=== PATIENT | female | born 1960 | race Hispanic/Latino ===

== ENCOUNTER 2020-06-13 19:42 | Emergency (ER) | payer OTHER, SELFPAY ==
--- NOTE | 2020-06-13 20:51 | RAD ---
EXAM: RIGHT KNEE FOUR VIEWS: 06/13/20 HISTORY: Pain. FINDINGS: There is a suprapatellar effusion. No fracture, cortical irregularity or periosteal reaction. There i s mild to moderate degenerative change involving the lateral compartment. IMPRESSION: Suprapatellar effusion without radiographic evidence of fracture. If there is concern for internal de rangement, consider MRI. POS: PPP
[2020-06-13] MEDS ORDERED: HYDROcodone/Acetaminophen 10/325 mg Tablet ONE (21:12)
== END 2020-06-13 21:19 | disposition home or self-care (01) ==
LOC: ERS 19:42
DX: M25.561 Pain in right knee (principal); J45.909 Unspecified asthma, uncomplicated; F17.210 Nicotine dependence, cigarettes, uncomplicated

== ENCOUNTER 2020-09-17 17:57 | Observation (INO) | payer SELFPAY ==
--- NOTE | 2020-09-17 18:26 | RAD ---
Exam: Chest one view HISTORY:Chest pain. Comparison: 01/19/2017 FINDINGS: Cardiac silhouette: Normal Aorta: Unremarkable Pulmonary vessels: Normal Costophrenic angles: Clear LUNGS: No masses or consolidation. Pneumothorax: None Osseous abnormalities: None IMPRESSION: No acute cardiopulmonary process.
[2020-09-17 18:41] LABS: #Basophils 0.1 thou/uL (0.0-0.2); #Eosinphils 0.2 thou/uL (0.0-0.7); #Lymphocytes 2.2 thou/uL (1.20-3.40); #Monocytes 0.6 thou/uL (0.11-0.59); #Neutrophils 5.6 thou/uL (1.40-6.50); %Basophils 0.9 % (0.0-1.0); %Eosinophils 2.8 % (0.0-10.0); %Lymphocytes 25.2 % (21.0-51.0); %Monocytes 6.6 % (0.0-10.0); %Neutrophils 64.4 % (42.0-75.0); Hemoglobin 13.5 g/dL (12.0-16.0); Mean Corpuscular HGB CONC 31.5 g/dL (32.0-36.0); Mean Corpuscular Hemoglobin 27.8 pg (27.0-31.0); Mean Corpuscular Volume 88.3 fL (78.0-98.0); Mean Platelet Volume 8.6 fL (7.4-10.4); Platelet Count 299 thou/uL (130-400); RBC Distribution Width 11.9 % (11.5-14.5); Red Blood Cell (RBC) Count 4.84 mill/uL (4.20-5.40); White Blood Cell (WBC) Count 8.7 thou/uL (4.8-10.8)
[2020-09-17 19:01] LABS: ALT (SGPT) 24 U/L (8-55); AST (SGOT) 28 U/L (5-34); Albumin 4.4 g/dL (3.5-5.0); Alkaline Phosphatase 116 U/L (40-110); Anion Gap 16 mmol/L (10-20); BUN (Urea Nitrogen) 16 mg/dL (9.8-20.1); Bilirubin, Total 0.3 mg/dL (0.2-1.2); Calc. Creatinine Clearance 0 mL/min (70-130); Calcium 9.4 mg/dL (7.8-10.44); Carbon Dioxide 26 mmol/L (22-29); Chloride 103 mmol/L (98-107); Globulin 3.2 g/dL (2.4-3.5); Glucose 98 mg/dL (70-105); Lipase 23 U/L (8-78); Potassium 4.3 mmol/L (3.5-5.1); Protein, Total 7.6 g/dL (6.0-8.3); Sodium 141 mmol/L (136-145)
[2020-09-17 20:58] LABS: Bacteria/HPF 2+ HPF (None Seen); Bilirubin Negative (Negative); Blood, Urine Trace (Negative); Clarity Clear (Clear); Glucose, Urine (Dipstick) Normal (Negative); Ketone, Urine Negative (Negative); Leukocyte 25 Leu/uL (Negative); Nitrite Negative (Negative); Protein, Urine (Dipstick) 20 mg/dL (Neg-Trace); RBC/HPF 0-3 HPF (0-3); Specific Gravity, Urine 1.029 (1.002-1.036); Squamous Epithelial 0-3 HPF (0-3); Urobilinogen Normal mg/dL (Less than 2); pH, Urine 5.5 (5.0-9.0)
[2020-09-17] MEDS ORDERED: Nitroglycerin 2% Ointment 1 INCH/1 GM Packet ONE (21:11)
[2020-09-17] MEDS ORDERED: Aspirin Chewable 81 MG TAB ONE (21:11)
[2020-09-17] MEDS ORDERED: Ondansetron PF 4 MG/2 ML Vial ONE (21:22)
[2020-09-17] MEDS ORDERED: Morphine 4 MG/ML VIAL ONE (21:22)
--- NOTE | 2020-09-17 22:09 | ULT ---
EXAM: US Gallbladder RUQ CLINICAL HISTORY: Abdominal pain. Right upper quadrant pain.. COMPARISON: 10/31/2016 FINDINGS: Pancreas: The head and proximal body of the pancreas have a normal echotexture. The remainder the pa ncreas is obscured by bowel gas. Liver:Heterogeneous echotexture liver may be due to hepatic steatosis or hepatocellular disease. Limi rosemary evaluation for hepatic masses and intrahepatic biliary dilatation. Right hepatic lobe: 18.3 cm Gallbladder: Surgically absent Gonzales's sign:Not applicable Portal Vein: Limited evaluation of the main portal vein. Bile ducts: Suboptimal evaluation the common bile duct Right kidney: No hydronephrosis. Right kidney measures 8.6 x 3.7 x 4.2 cm in length. IMPRESSION: 1. Surgically absent gallbladder 2. Heterogeneous echotexture liver which may be due to hepatic steatosis or hepatocellular disease. M ild hepatomegaly. 3. Suboptimal evaluation the common bile duct.
[2020-09-17 23:53] LABS: Troponin I Less than 0.010 ng/mL (< 0.028)
--- NOTE | 2020-09-18 01:48 | PDOC.HHP ---
Hospitalist HPI - History of Present Illness Chest pain History of Present Illness: This is a 59-year-old female patient with a history of asthma, stroke hypertension who presents with chest pain ongoing for a day. She notes having woken up in the morning with pain into the chest which was persisted. Pain is central nonradiating no significant relieving factors. She had associated shortness of breath however denies any nausea vomiting. At presentation BP was 184/71, temperature 98.2, respiratory 14 and pulse 78. BMP CBC UA and D-dimer were essentially within normal limits. Chest x-ray showed no acute cardiopulmonary process. Ultrasound of abdomen showed surgically absent gallbladder, heterogeneous echotexture concerning for possible hepatic steatosis or hepatocellular carcinoma. She was given morphine Zofran Nitro-Bid and aspirin in the ED. Hospitalist team consulted for admission for Exparel. Hospitalist History - Past Medical History Other Medical History: Hypertension, stroke, asthma - Past Surgical History Other Surgical History: Hysterectomy, - Family History Family History: reports: no pertinent history - Social History Smoking Status: Current every day smoker Alcohol: reports: None Living Situation: With Family - Exam General Appearance: awake alert General - other findings: In no acute distress. Eye: PERRL, anicteric sclera ENT: normocephalic atraumatic, no oropharyngeal lesions Neck: supple, symmetric, no JVD, no thyromegaly Heart: RRR, no murmur, no gallops, no rubs Respiratory: CTAB, no wheezes, no rales, no ronchi Gastrointestinal: soft, non-tender, non-distended, normal bowel sounds Extremities: no cyanosis, no clubbing, no edema Skin: no lesions Neurological: cranial nerve grossly intact, no weakness, no focal deficits Musculoskeletal: normal tone, normal strength Psychiatric: normal affect, normal behavior, A&O x 3 Hospitalist Results - Labs Result Diagrams: 09/18/20 02:08 09/17/20 18:27 Lab results: WBC 8.7 thou/uL (4.8-10.8) 09/17/20 18:27 Hgb 13.5 g/dL (12.0-16.0) 09/17/20 18:27 Hct 42.7 % (36.0-47.0) 09/17/20 18: MCV 88.3 fL (78.0-98.0) 09/17/20 18:27 Plt Count 299 thou/uL (130-400) 09/17/20 18:27 Neutrophils % 64.4 % (42.0-75.0) 09/17/20 18:27 Sodium 141 mmol/L (136-145) 09/17/20 18:27 Potassium 4.3 mmol/L (3.5-5.1) 09/17/20 18:27 Chloride 103 mmol/L (98-107) 09/17/20 18:27 Carbon Dioxide 26 mmol/L (22-29) 09/17/20 18:27 BUN 16 mg/dL (9.8-20.1) 09/17/20 18:27 Creatinine 0.78 mg/dL (0.6-1.1) 09/17/20 18:27 Glucose 98 mg/dL (70-105) 09/17/20 18:27 Calcium 9.4 mg/dL (7.8-10.44) 09/17/20 18:27 Total Bilirubin 0.3 mg/dL (0.2-1.2) 09/17/20 18:27 AST 28 U/L (5-34) 09/17/20 18:27 ALT 24 U/L (8-55) 09/17/20 18:27 Alkaline Phosphatase 116 U/L (40-110) H 09/17/20 18:27 Creatine Kinase 97 U/L (29-168) 09/17/20 18:27 Troponin I Less than 0.010 ng/mL (< 0.028) 09/17/20 23:14 Serum Total Protein 7.6 g/dL (6.0-8.3) 09/17/20 18:27 Albumin 4.4 g/dL (3.5-5.0) 09/17/20 18:27 Lipase 23 U/L (8-78) 09/17/20 18:27 Urine Ketones Negative mg/dL (Negative) 09/17/20 20:30 Urine Blood Trace (Negative) A 09/17/20 20:30 Urine Nitrite Negative (Negative) 09/17/20 20:30 Ur Leukocyte Esterase 25 Nuha/uL (Negative) A 09/17/20 20:30 Urine RBC 0-3 HPF (0-3) 09/17/20 20:30 Urine WBC 7-10 HPF (0-3) A 09/17/20 20:30 Ur Squamous Epith Cells 0-3 HPF (0-3) 09/17/20 20:30 Urine Bacteria 2+ HPF (None Seen) A 09/17/20 20:30 Hospitalist H&P A/P - Plan Plan: This a 59-year-old female patient history of asthma, stroke and hypertension who presents with ongoing chest pain for about a day. Initial evaluation concerning for possible ACS Chest pain Unclear etiology possible ACS. Pain was relieved with nitro bleed and aspirin at presentation We will admitinitial troponin negativewe will trend Heart score4 N.p.o. over midnight Stress test in a.m. Hypertension Resume home blood pressure medications once verified VT prophylaxis Lovenox CODE STATUSfull code
[2020-09-18 02:08] VITALS: BMI 34.4
[2020-09-18 02:30] LABS: #Basophils 0.1 thou/uL (0.0-0.2); #Eosinphils 0.2 thou/uL (0.0-0.7); #Lymphocytes 2.1 thou/uL (1.20-3.40); #Monocytes 0.4 thou/uL (0.11-0.59); #Neutrophils 3.6 thou/uL (1.40-6.50); %Basophils 2.1 % (0.0-1.0); %Eosinophils 3.7 % (0.0-10.0); %Lymphocytes 32.3 % (21.0-51.0); %Monocytes 6.4 % (0.0-10.0); %Neutrophils 55.4 % (42.0-75.0); Hemoglobin 12.2 g/dL (12.0-16.0); Mean Corpuscular HGB CONC 31.7 g/dL (32.0-36.0); Mean Corpuscular Volume 88.5 fL (78.0-98.0); Mean Platelet Volume 8.7 fL (7.4-10.4); Platelet Count 269 thou/uL (130-400); Red Blood Cell (RBC) Count 4.34 mill/uL (4.20-5.40); White Blood Cell (WBC) Count 6.4 thou/uL (4.8-10.8)
[2020-09-18 02:53] LABS: Troponin I Less than 0.010 ng/mL (< 0.028)
[2020-09-18 03:33] LABS: Anion Gap 15 mmol/L (10-20); BUN (Urea Nitrogen) 16 mg/dL (9.8-20.1); Calc. Creatinine Clearance 127 mL/min (70-130); Calcium 8.6 mg/dL (7.8-10.44); Carbon Dioxide 23 mmol/L (22-29); Chloride 104 mmol/L (98-107); Glucose 90 mg/dL (70-105); Potassium 3.8 mmol/L (3.5-5.1); Sodium 138 mmol/L (136-145)
[2020-09-18] MEDS ORDERED: Acetaminophen 325 MG TAB ONE (05:44)
[2020-09-18] MEDS ORDERED: Acetaminophen 325 MG TAB PO SCH (06:30)
[2020-09-18 06:35] LABS: SARS-CoV-2 MS2 Positive; SARS-CoV-2 N Gene Negative; SARS-CoV-2 S Gene Negative; SARS-CoV-2 by NAA Not Detected (NotDetected); SARS-CoV-2 orf1ab Negative
[2020-09-18] MEDS ORDERED: Enoxaparin Sodium 40 MG/0.4 ML SYRINGE ONE (08:41)
[2020-09-18] MEDS: Enoxaparin Sodium 40 MG/0.4 ML SYRINGE SC SCH (11:05)
[2020-09-18] MEDS ORDERED: Regadenoson 0.4 MG/5 ML SYRINGE ONE (11:53)
--- NOTE | 2020-09-18 17:45 | PDOC.HOSPP ---
- Subjective Encounter Date: 09/18/20 Encounter Time: 17:44 Subjective: Patient seen for follow-up regarding chest pain. Complains of on and off left- sided chest pain, sharp. Denies nausea or vomiting. - Objective Vital Signs & Weight: Vital Signs (12 hours) Temp Pulse Resp BP Pulse Ox 09/18/20 15:58 98.1 F 62 16 142/67 H 99 Weight Weight 194 lb 9.632 oz Result Diagrams: 09/18/20 02:08 09/18/20 02:08 Additional Labs: Labs and MAR reviewed by me EKG Reviewed by me: Yes (Telemetry shows normal sinus rhythm) Hospitalist ROS - Review of Systems Cardiovascular: reports: chest pain. denies: palpitations, orthopnea, paroxysmal noc. dyspnea, edema, light headedness Gastrointestinal: denies: nausea, vomiting, abdominal pain, diarrhea, constipation, melena, hematochezia - Medication Medications: Active Medications Generic Name Dose Route Start Last Admin Trade Name Freq PRN Reason Stop Dose Admin Enoxaparin Sodium 40 mg 09/18/20 09:00 09/18/20 11:05 Enoxaparin Sodium 40 Mg/0.4 Ml Syringe SC 40 mg 0900 KATINA Administration - Exam General - other findings: Obese ENT: moist mucosa Neck: supple Heart: RRR Respiratory: CTAB Gastrointestinal: soft, non-tender Skin: no rashes Psychiatric: normal affect, normal behavior Hosp A/P - Plan - Plan Chest pain Morphine as needed for chest pain. 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 Pulmonary embolism has been ruled out with a negative D-dimer. Hypertension Stable and reasonably controlled. VT prophylaxis with Lovenox
[2020-09-18] MEDS ORDERED: Morphine 2 MG/ML VIAL ONE (18:47)
[2020-09-18] MEDS ORDERED: Sodium Chloride 0.9% 10 ML ONE (19:33)
[2020-09-18] MEDS: Morphine 2 MG/ML VIAL SLOW IVP PRN (19:39)
[2020-09-19] MEDS ORDERED: Morphine 2 MG/ML VIAL ONE ×2 (04:31→09:51)
[2020-09-19] MEDS: Morphine 2 MG/ML VIAL SLOW IVP PRN ×2 (04:34→09:54)
[2020-09-19] MEDS: Enoxaparin Sodium 40 MG/0.4 ML SYRINGE SC SCH (09:48)
[2020-09-19] MEDS ORDERED: Sodium Chloride 0.9% 30 ML ONE (09:53)
--- NOTE | 2020-09-19 11:25 | NM ---
CARDIAC SPECT: CLINICAL HISTORY: 59-year-old female with chest pain, asthma, CVA, hypertension, and smoker. TECHNIQUE: A myocardial perfusion scan was performed using the single isotope two day protocol with 33 mCi techn etium-99m sestamibi injected intravenously for both stress and rest images. Pharmacologic stress with Lexiscan was monitored and interpreted by Dr. Casarez. FINDINGS: Homogeneous tracer distribution is seen in the myocardial segments on stress and rest images without fixed or reversible defects. GATED SPECT LVEF: 84%. WALL MOTION EXAM: Normal. IMPRESSION: Normal myocardial perfusion scan. POS: AH
--- NOTE | 2020-09-19 12:39 | PDOC.DS.DS ---
Provider - Provider Date of Admission: 09/17/20 23:08 Date of Discharge: 09/19/20 Admitting Provider: Max Rangel MD Primary Care Physician: NO PCP PROVIDER Course - Hospital Course Hospital Course: Discharge diagnosis: 1. Chest pain 2. Chest pain most likely secondary to musculoskeletal etiology 3. COVID-19 PCR test negative Hospital course: Patient is a pleasant 59-year-old lady who was admitted to the hospital on September 17, 2020 for chest pain. Pulmonary embolism was ruled out with a negative D-dimer. Nuclear stress test was normal, with left ventricular ejection fraction of 84%. Chest pain improved, she is being discharged home in a stable condition. Many thanks for allowing me to participate in your patient's care. Please feel free to contact me with any questions or concerns. Discharge destination: Home Resuscitation Status: 09/18/20 01:39 Resuscitation Status Routine Resuscitation Status: FULL: Full Resuscitation - Labs Lab Results: 09/18/20 02:08 09/18/20 02:08 Abnormal Lab Results - Last 48 hrs 09/17/20 18:27: MCHC 31.5 L, Monocytes # 0.6 H 09/17/20 18:27: Alkaline Phosphatase 116 H 09/17/20 20:30: Urine Blood Trace A, Ur Leukocyte Esterase 25 A, Urine WBC 7-10 A, Urine Bacteria 2+ A 09/18/20 02:08: MCHC 31.7 L, Basophils % 2.1 H - Physical Exam Vitals: Vital Signs (12 hours) Temp Pulse Resp BP BP Pulse Ox 09/19/20 08:20 77 16 146/80 H 100 09/19/20 08:00 98.2 F 76 18 123/69 98 09/19/20 03:38 98.0 F 64 17 140/80 97 Weight Weight 194 lb 9.632 oz Physical Exam: The patient was seen and examined on the day of discharge. Patient denies chest pain or shortness of breath. Vital signs are stable. S1 and S2 are heard. Lungs are clear to auscultation bilaterally. Plan - Discharge Medications Home Medications: Medication Instructions Recorded Confirmed Type No Known 09/19/20 09/19/20 History Allergies: Penicillins Allergy (Intermediate, Verified 09/19/20 04:00) CHILLS, RASH Sulfa (Sulfonamide Antibiotics) Allergy (Intermediate, Verified 09/19/20 04:00) Rash - Discharge Instructions Activity:: Activity as Tolerated Nourishment:: Heart Healthy Diet - Follow up Plan Referrals: PROVIDER,AINSLEY PCP [Primary Care Provider] - 3 Days Disposition: HOME Quality - Care Measures CORE MEASURES:: N/A
[2020-09-19 12:49] VITALS: BP 126/70; TEMP 98
[2020-09-19] MEDS ORDERED: Ondansetron PF 4 MG/2 ML Vial IVP PRN (12:49)
[2020-09-19] MEDS ORDERED: Ondansetron PF 4 MG/2 ML Vial ONE (12:52)
[2020-09-19] MEDS ORDERED: Ondansetron PF 4 MG/2 ML Vial IVP SCH (13:00)
== END 2020-09-19 14:44 | disposition home or self-care (01) ==
LOC: ERS 17:57 → ERHOLD 23:08 → PACU-TCU 09-18 15:32
PROVIDERS: ADMIT Student in an Organized Health Care Education/Training Program; ATTEND Internal Medicine
DX: R07.9 Chest pain, unspecified (principal); J45.909 Unspecified asthma, uncomplicated; F17.200 Nicotine dependence, unspecified, uncomplicated; I10 Essential (primary) hypertension; Z86.73 Personal history of transient ischemic attack (TIA), and cerebral infarction without residual deficits; Z88.0 Allergy status to penicillin; Z88.2 Allergy status to sulfonamides; Z20.828 Contact with and (suspected) exposure to other viral communicable diseases
CPT/HCPCS: 36415; 71045; 76705; 78452; 80048; 80053; 81003; 81015; 82550; 83690; 84484; 85025; 85379; 87635; 93005; 93017; 96372; 96374; 96375; 96376; A9500; G0378; J1650; J2270; J2405; J2785; U0003

== ENCOUNTER 2021-03-19 16:33 | Inpatient (IN) | payer SELFPAY ==
[2021-03-19] MEDS ORDERED: Nitroglycerin 0.4 MG TAB (25 Tab Bottle) SL PRN (17:28)
[2021-03-19] MEDS ORDERED: Loperamide HCl 2 MG CAP PO PRN (17:29)
[2021-03-19] MEDS ORDERED: Zolpidem Tartrate 5 MG TAB PO PRN (17:29)
[2021-03-19] MEDS ORDERED: Guaifenesin DM 100-10/5 ML UDCUP PO PRN (17:29)
[2021-03-19] MEDS ORDERED: Ondansetron PF 4 MG/2 ML Vial IVP PRN (17:29)
[2021-03-19] MEDS ORDERED: Acetaminophen 325 MG TAB PO PRN (17:29)
[2021-03-19] MEDS ORDERED: Ondansetron ODT 4 MG TAB PO PRN (17:29)
[2021-03-19] MEDS ORDERED: Nitroglycerin 2% Ointment 1 INCH/1 GM Packet ONE (17:52)
[2021-03-19 19:23] VITALS: BMI 37.0
[2021-03-19] MEDS ORDERED: Enoxaparin Sodium 100 MG/ML SYRINGE SC SCH (19:30)
[2021-03-19] MEDS: HYDROcodone/Acetaminophen 5/325 mg Tablet PO PRN (19:51)
[2021-03-19 20:35] LABS: Troponin I Less than 0.010 ng/mL (< 0.028)
[2021-03-19] MEDS ORDERED: Metoprolol Tartrate 25 MG TAB PO SCH ×2 (21:00)
[2021-03-19] MEDS: Nitroglycerin 2% Ointment 1 INCH/1 GM Packet TOP SCH (21:32)
[2021-03-20] MEDS: HYDROcodone/Acetaminophen 5/325 mg Tablet PO PRN (05:24)
[2021-03-20] MEDS: Nitroglycerin 2% Ointment 1 INCH/1 GM Packet TOP SCH ×2 (05:24→16:39)
[2021-03-20 05:28] LABS: #Basophils 0.1 thou/uL (0.0-0.2); #Eosinphils 0.3 thou/uL (0.0-0.7); #Lymphocytes 1.9 thou/uL (1.20-3.40); #Monocytes 0.5 thou/uL (0.11-0.59); #Neutrophils 3.2 thou/uL (1.40-6.50); %Basophils 1.5 % (0.0-1.0); %Eosinophils 5.3 % (0.0-10.0); %Monocytes 7.9 % (0.0-10.0); %Neutrophils 54.3 % (42.0-75.0); Hemoglobin 12.1 g/dL (12.0-16.0); Mean Corpuscular HGB CONC 32.3 g/dL (32.0-36.0); Mean Corpuscular Hemoglobin 29.6 pg (27.0-31.0); Mean Corpuscular Volume 91.4 fL (78.0-98.0); Mean Platelet Volume 8.6 fL (7.4-10.4); Platelet Count 217 thou/uL (130-400); RBC Distribution Width 12.4 % (11.5-14.5); Red Blood Cell (RBC) Count 4.08 mill/uL (4.20-5.40)
[2021-03-20 05:49] LABS: ALT (SGPT) 25 U/L (8-55); AST (SGOT) 27 U/L (5-34); Albumin 3.5 g/dL (3.5-5.0); Alkaline Phosphatase 98 U/L (40-110); Anion Gap 11 mmol/L (10-20); BUN (Urea Nitrogen) 13 mg/dL (9.8-20.1); Bilirubin, Total 0.4 mg/dL (0.2-1.2); Calc. Creatinine Clearance 116 mL/min (70-130); Carbon Dioxide 26 mmol/L (22-29); Cardiac Risk 3.4 (Less than 4.5); Chloride 105 mmol/L (98-107); Cholesterol 229 mg/dl (< 200 Desired); Globulin 2.9 g/dL (2.4-3.5); Glucose 97 mg/dL (70-105); HDL Cholesterol 67 mg/dL (>60 Neg Risk); LDL Cholesterol, Calculated 126 mg/dL; Protein, Total 6.4 g/dL (6.0-8.3); Sodium 138 mmol/L (136-145); Triglycerides 179 mg/dL (Less than 150)
[2021-03-20 07:43] LABS: SARS-CoV-2 PCR by NAA Not Detected (NotDetected)
[2021-03-20] MEDS ORDERED: Enoxaparin Sodium 100 MG/ML SYRINGE SC SCH (09:00)
[2021-03-20] MEDS ORDERED: Aspirin 325 mg Enteric Coated Tablet PO SCH (09:00)
[2021-03-20] MEDS ORDERED: Communication Order-Pharmacy FS SCH (09:00)
[2021-03-20] MEDS ORDERED: Iopamidol 370 76% 100 ML VIAL ONE (09:15)
[2021-03-20] MEDS ORDERED: Lidocaine 1% (PF) 30 ML VIAL ONE (10:26)
[2021-03-20] MEDS ORDERED: Midazolam HCl 2 mg/2 ml Vial ONE (11:23)
[2021-03-20] MEDS ORDERED: Sodium Chloride 0.9% 200 ML IV PRN (11:48)
[2021-03-20] MEDS ORDERED: Acetaminophen/Codeine 30-300mg Tablet PO PRN ×2 (11:48)
[2021-03-20] MEDS ORDERED: Nitroglycerin 0.4 MG TAB (25 Tab Bottle) SL PRN (11:48)
[2021-03-20] MEDS ORDERED: Aspirin 81 mg Enteric Coated Tablet PO SCH (12:15)
[2021-03-20] MEDS ORDERED: Nitroglycerin 2% Ointment 1 INCH/1 GM Packet TOP PRN (16:30)
[2021-03-20] MEDS: Atorvastatin Calcium 40 MG TAB PO SCH (21:52)
[2021-03-21 05:45] LABS: #Basophils 0.1 thou/uL (0.0-0.2); #Eosinphils 0.3 thou/uL (0.0-0.7); #Lymphocytes 1.7 thou/uL (1.20-3.40); #Monocytes 0.5 thou/uL (0.11-0.59); #Neutrophils 4.7 thou/uL (1.40-6.50); %Basophils 0.9 % (0.0-1.0); %Eosinophils 3.9 % (0.0-10.0); %Monocytes 6.2 % (0.0-10.0); %Neutrophils 65.1 % (42.0-75.0); Mean Corpuscular HGB CONC 31.6 g/dL (32.0-36.0); Mean Corpuscular Hemoglobin 29.3 pg (27.0-31.0); Mean Corpuscular Volume 92.5 fL (78.0-98.0); Mean Platelet Volume 8.8 fL (7.4-10.4); Platelet Count 223 thou/uL (130-400); RBC Distribution Width 12.3 % (11.5-14.5); Red Blood Cell (RBC) Count 4.44 mill/uL (4.20-5.40); White Blood Cell (WBC) Count 7.3 thou/uL (4.8-10.8)
[2021-03-21 05:53] LABS: Anion Gap 13 mmol/L (10-20); BUN (Urea Nitrogen) 13 mg/dL (9.8-20.1); Calc. Creatinine Clearance 109 mL/min (70-130); Calcium 9.2 mg/dL (7.8-10.44); Carbon Dioxide 25 mmol/L (22-29); Chloride 104 mmol/L (98-107); Glucose 93 mg/dL (70-105); Sodium 138 mmol/L (136-145)
[2021-03-21] MEDS: Aspirin 81 mg Enteric Coated Tablet PO SCH (09:31)
[2021-03-21] MEDS: Atorvastatin Calcium 40 MG TAB PO SCH (20:24)
[2021-03-21] MEDS: Apixaban 5 MG TAB PO SCH (20:24)
[2021-03-22] MEDS: Aspirin 81 mg Enteric Coated Tablet PO SCH (09:12)
[2021-03-22] MEDS: Apixaban 5 MG TAB PO SCH (09:12)
[2021-03-22 15:51] VITALS: BP 114/60; TEMP 99.1
== END 2021-03-22 16:02 | disposition home or self-care (01) | DRG 287 ==
LOC: ERS 16:33 → 2SW 17:25 → OBSVTOIN 03-20 16:35
PROVIDERS: ADMIT Internal Medicine; ATTEND Internal Medicine
PROC: 4A023N7 Measurement of Cardiac Sampling and Pressure, Left Heart, Percutaneous Approach (ICD-10-PCS; principal; 2021-03-20)
PROC: B211YZZ Fluoroscopy of Multiple Coronary Arteries using Other Contrast (ICD-10-PCS; 2021-03-20)
PROC: B215YZZ Fluoroscopy of Left Heart using Other Contrast (ICD-10-PCS; 2021-03-20)
DX: I25.110 Atherosclerotic heart disease of native coronary artery with unstable angina pectoris (principal); Z20.822 Contact with and (suspected) exposure to COVID-19; K21.9 Gastro-esophageal reflux disease without esophagitis; J45.20 Mild intermittent asthma, uncomplicated; F17.210 Nicotine dependence, cigarettes, uncomplicated; R00.1 Bradycardia, unspecified; E66.9 Obesity, unspecified; I48.0 Paroxysmal atrial fibrillation; E78.00 Pure hypercholesterolemia, unspecified; Z68.35 Body mass index [BMI] 35.0-35.9, adult; Z88.0 Allergy status to penicillin; Z88.2 Allergy status to sulfonamides; Z98.51 Tubal ligation status; Z90.710 Acquired absence of both cervix and uterus
CPT/HCPCS: 36415; 80048; 80053; 80061; 85025; 90471; 90732; 93458; 99152; G0009; J1650; J2001; J2250; Q9967; U0003; U0005

== ENCOUNTER 2022-03-08 15:37 | Emergency (ER) | payer SELFPAY | END 2022-03-08 17:28 | disposition home or self-care (01) | LOC: ERS 15:37 | DX: M25.561 Pain in right knee (principal); X50.1XXA Overexertion from prolonged static or awkward postures, initial encounter; J45.909 Unspecified asthma, uncomplicated; Z87.891 Personal history of nicotine dependence ==

== ENCOUNTER 2022-03-24 13:24 | Emergency (ER) | payer SELFPAY | END 2022-03-24 14:10 | disposition home or self-care (01) | LOC: ERS 13:24 | DX: M25.561 Pain in right knee (principal); G89.29 Other chronic pain; J45.909 Unspecified asthma, uncomplicated; Z87.891 Personal history of nicotine dependence; W22.8XXA Striking against or struck by other objects, initial encounter ==

== ENCOUNTER 2022-05-05 15:35 | Emergency (ER) | payer SELFPAY ==
[2022-05-05 16:44] LABS: #Eosinphils 0.1 thou/uL (0.0-0.7); #Lymphocytes 1.9 thou/uL (1.20-3.40); #Monocytes 0.6 thou/uL (0.11-0.59); #Neutrophils 4.3 thou/uL (1.40-6.50); %Basophils 0.2 % (0.0-1.0); %Eosinophils 1.1 % (0.0-10.0); %Lymphocytes 27.8 % (21.0-51.0); %Monocytes 9.3 % (0.0-10.0); %Neutrophils 61.7 % (42.0-75.0); Hemoglobin 13.2 g/dL (12.0-16.0); Mean Corpuscular HGB CONC 31.4 g/dL (32.0-36.0); Mean Corpuscular Hemoglobin 28.6 pg (27.0-31.0); Mean Corpuscular Volume 91.1 fL (78.0-98.0); Platelet Count 262 thou/uL (130-400); Red Blood Cell (RBC) Count 4.63 mill/uL (4.20-5.40); White Blood Cell (WBC) Count 6.9 thou/uL (4.8-10.8)
[2022-05-05 17:07] LABS: ALT (SGPT) 24 U/L (8-55); AST (SGOT) 28 U/L (5-34); Alkaline Phosphatase 99 U/L (40-110); Anion Gap 14 mmol/L (10-20); BUN (Urea Nitrogen) 7 mg/dL (9.8-20.1); Bilirubin, Total 0.2 mg/dL (0.2-1.2); Calc. Creatinine Clearance 0 mL/min (70-130); Calcium 9.2 mg/dL (7.8-10.44); Carbon Dioxide 26 mmol/L (22-29); Chloride 104 mmol/L (98-107); Estimated GFR 98; Globulin 3.4 g/dL (2.4-3.5); Glucose 83 mg/dL (70-105); Lipase 28 U/L (8-78); Potassium 4.3 mmol/L (3.5-5.1); Protein, Total 7.4 g/dL (6.0-8.3); Sodium 140 mmol/L (136-145)
[2022-05-05] MEDS ORDERED: Morphine 4 MG/ML VIAL ONE (17:42)
[2022-05-05] MEDS ORDERED: Aspirin 325 MG TAB ONE (17:43)
== END 2022-05-05 20:42 | disposition home or self-care (01) ==
LOC: ERS 15:35
DX: U07.1 COVID-19 (principal); R07.2 Precordial pain; I10 Essential (primary) hypertension; I25.10 Atherosclerotic heart disease of native coronary artery without angina pectoris; E78.5 Hyperlipidemia, unspecified; J45.909 Unspecified asthma, uncomplicated
CPT/HCPCS: 36415; 71045; 80053; 83690; 84484; 85025; 93005; 96374; J2270; U0003; U0005

== ENCOUNTER 2022-11-27 15:58 | Emergency (ER) | payer SELFPAY ==
[2022-11-27] MEDS ORDERED: Ketorolac Tromethamine 30 MG/ML VIAL ONE (17:20)
== END 2022-11-27 17:56 | disposition home or self-care (01) ==
LOC: ERS 15:58
DX: M25.561 Pain in right knee (principal); I10 Essential (primary) hypertension; E78.5 Hyperlipidemia, unspecified
CPT/HCPCS: 96372; J1885

== ENCOUNTER 2024-03-10 18:53 | Emergency (ER) | payer BC, SELFPAY ==
[2024-03-10] MEDS ORDERED: Acetaminophen 500 MG TAB ONE (19:14)
[2024-03-10] MEDS ORDERED: Ondansetron PF 4 MG/2 ML Vial ONE (19:26)
[2024-03-10] MEDS ORDERED: Ipratropium/Albuterol 3 ML NEB ONE (19:48)
[2024-03-10] MEDS ORDERED: Albuterol 2.5 MG (0.5 mL) NEB ONE (19:48)
[2024-03-10] MEDS ORDERED: Doxycycline 100 MG CAP ONE (19:48)
[2024-03-10] MEDS ORDERED: methylPREDNISolone Sod Succ/PF 125 MG/2 ML VIAL ONE (19:49)
[2024-03-10] MEDS ORDERED: Ketorolac Tromethamine 30 MG (1 mL) VIAL ONE (19:57)
[2024-03-10 20:28] LABS: Influenza A by NAA Not Detected (NotDetected); Influenza B by NAA Not Detected (NotDetected); SARS-CoV-2 NAA Rapid Test DETECTED (NotDetected)
[2024-03-10 21:45] LABS: Bacteria/HPF None Seen HPF (None Seen); Bilirubin Negative (Negative); Blood, Urine Negative (Negative); CAUTI Indications for Culture Fever or rigors; Clarity Turbid (Clear); Glucose, Urine (Dipstick) Normal (Negative); Ketone, Urine Negative (Negative); Leukocyte 75 Leu/uL (Negative); Nitrite Negative (Negative); Protein, Urine (Dipstick) Negative (Neg-Trace); RBC/HPF 0-3 HPF (0-3); Specific Gravity, Urine 1.004 (1.002-1.036); Urobilinogen Normal mg/dL (Less than 2)
[2024-03-10 21:45] LABS: #Basophils 0.05 10x3/uL (0.0-0.2); %Basophils 0.6 % (0.0-1.0); %Eosinophils 0.9 % (0.0-10.0); %Lymphocytes 15.5 % (21.0-51.0); %Monocytes 5.3 % (0.0-10.0); %Neutrophils 77.2 % (42.0-75.0); Hematocrit 39.4 % (36.0-47.0); Hemoglobin 12.9 g/dL (12.0-16.0); Mean Corpuscular HGB CONC 32.7 g/dL (32.0-36.0); Mean Corpuscular Hemoglobin 28.4 pg (27.0-31.0); Mean Corpuscular Volume 86.8 fL (78.0-98.0); Mean Platelet Volume 11.1 fL (7.4-10.4); Platelet Count 226 10x3/uL (130-400); RBC Distribution Width 13.7 % (11.5-14.5); Red Blood Cell (RBC) Count 4.54 mill/uL (4.20-5.40)
[2024-03-10 21:46] LABS: Urine Culture Reflex No No
[2024-03-10 22:16] LABS: ALT (SGPT) 44 U/L (8-55); AST (SGOT) 44 U/L (5-34); Albumin 3.5 g/dL (3.4-4.8); Alkaline Phosphatase 104 U/L (40-110); Anion Gap 10 mmol/L (10-20); BUN (Urea Nitrogen) 8 mg/dL (9.8-20.1); Bilirubin, Total 0.4 mg/dL (0.2-1.2); Calc. Creatinine Clearance 0 mL/min (70-130); Calcium 8.5 mg/dL (7.8-10.44); Carbon Dioxide 22 mmol/L (23-31); Chloride 110 mmol/L (98-107); Estimated GFR 98; Globulin 3.2 g/dL (2.4-3.5); Glucose 109 mg/dL (80-115); Lipase 14 U/L (8-78); Potassium 3.4 mmol/L (3.5-5.1); Protein, Total 6.7 g/dL (5.8-8.1); Sodium 139 mmol/L (136-145)
[2024-03-10 22:17] LABS: Troponin I Less than 0.010 ng/mL (< 0.028)
== END 2024-03-10 23:10 | disposition home or self-care (01) ==
LOC: ERS 18:53
DX: U07.1 COVID-19 (principal); J18.9 Pneumonia, unspecified organism; I10 Essential (primary) hypertension; I25.10 Atherosclerotic heart disease of native coronary artery without angina pectoris; Z87.891 Personal history of nicotine dependence; R11.2 Nausea with vomiting, unspecified
CPT/HCPCS: 36415; 71045; 80053; 81001; 83605; 83690; 83735; 83880; 84484; 85025; 87040; 93005; 96361; 96374; 96375; J1885; J2405; J2930; J7611; J7620

== ENCOUNTER 2024-07-07 13:33 | Outpatient (CLI) | payer OTHER | END 2024-07-07 13:34 | disposition home or self-care (01) | LOC: BICRAD 13:33 | PROVIDERS: ATTEND Internal Medicine | DX: M25.561 Pain in right knee (principal); M17.11 Unilateral primary osteoarthritis, right knee ==

== ENCOUNTER 2024-09-21 14:19 | Emergency (ER) | payer BC, SELFPAY ==
[2024-09-21] MEDS ORDERED: Ketorolac Tromethamine 30 MG (1 mL) VIAL ONE (15:15)
[2024-09-21] MEDS ORDERED: HYDROcodone/Acetaminophen 5/325 mg Tablet ONE (15:16)
[2024-09-21 15:39] LABS: %Eosinophils 2.2 % (0.0-10.0); %Lymphocytes 25.7 % (21.0-51.0); %Monocytes 5.5 % (0.0-10.0); %Neutrophils 65.3 % (42.0-75.0); Hematocrit 43.8 % (36.0-47.0); Hemoglobin 13.8 g/dL (12.0-16.0); Mean Corpuscular HGB CONC 31.5 g/dL (32.0-36.0); Mean Corpuscular Volume 88.8 fL (78.0-98.0); Mean Platelet Volume 10.8 fL (7.4-10.4); Platelet Count 278 10x3/uL (130-400); RBC Distribution Width 14.1 % (11.5-14.5); Red Blood Cell (RBC) Count 4.93 mill/uL (4.20-5.40)
[2024-09-21 16:17] LABS: Calc. Creatinine Clearance 0 mL/min (70-130); Estimated GFR 91
[2024-09-21 16:19] LABS: ALT (SGPT) 41 U/L (8-55); AST (SGOT) 42 U/L (5-34); Alkaline Phosphatase 124 U/L (40-110); Anion Gap 13 mmol/L (10-20); BUN (Urea Nitrogen) 12 mg/dL (9.8-20.1); Bilirubin, Total 0.4 mg/dL (0.2-1.2); Carbon Dioxide 24 mmol/L (23-31); Chloride 108 mmol/L (98-107); Globulin 3.8 g/dL (2.4-3.5); Glucose 90 mg/dL (80-115); Potassium 3.8 mmol/L (3.5-5.1); Protein, Total 7.8 g/dL (5.8-8.1); Sodium 141 mmol/L (136-145)
[2024-09-21 16:23] LABS: Troponin I Less than 0.010 ng/mL (< 0.028)
== END 2024-09-21 18:30 | disposition home or self-care (01) ==
LOC: ERS 14:19
DX: M17.11 Unilateral primary osteoarthritis, right knee (principal); E11.9 Type 2 diabetes mellitus without complications; I10 Essential (primary) hypertension; E78.5 Hyperlipidemia, unspecified; I25.10 Atherosclerotic heart disease of native coronary artery without angina pectoris; Z87.891 Personal history of nicotine dependence
CPT/HCPCS: 36415; 71045; 80053; 83880; 84484; 85025; 93005; 96372; J1885

== ENCOUNTER 2025-06-16 19:12 | Emergency (ER) | payer OTHER ==
[2025-06-16 19:36] LABS: #Basophils 0.07 10x3/uL (0.0-0.2); #Eosinophils 0.28 10x3/uL (0.0-0.7); #Monocytes 0.45 10x3/uL (0.11-0.59); #Neutrophils 5.14 10x3/uL (1.40-6.50); %Basophils 0.8 % (0.0-1.0); %Eosinophils 3.3 % (0.0-10.0); %Lymphocytes 29.9 % (21.0-51.0); %Monocytes 5.3 % (0.0-10.0); %Neutrophils 60.3 % (42.0-75.0); Hematocrit 41.0 % (36.0-47.0); Hemoglobin 12.7 g/dL (12.0-16.0); Mean Corpuscular Hemoglobin 27.3 pg (27.0-31.0); Mean Corpuscular Volume 88.0 fL (78.0-98.0); Platelet Count 262 10x3/uL (130-400); Red Blood Cell (RBC) Count 4.66 mill/uL (4.20-5.40); White Blood Cell (WBC) Count 8.52 10x3/uL (4.8-10.8)
[2025-06-16 19:58] LABS: ALT (SGPT) 39 U/L (Less than 34); AST (SGOT) 44 U/L (11-34); Albumin 3.6 g/dL (3.1-4.5); Alkaline Phosphatase 136 U/L (40-110); Anion Gap 12 mmol/L (10-20); BUN (Urea Nitrogen) 12 mg/dL (9.8-20.1); Bilirubin, Total 0.3 mg/dL (0.3-1.2); Calc. Creatinine Clearance 0 mL/min (70-130); Calcium 9.1 mg/dL (7.8-10.44); Carbon Dioxide 26 mmol/L (23-31); Chloride 110 mmol/L (98-107); Globulin 3.3 g/dL (2.4-3.5); Glucose 134 mg/dL (80-115); Potassium 3.7 mmol/L (3.5-5.1); Sodium 144 mmol/L (136-145)
[2025-06-16] MEDS ORDERED: Aspirin Chewable 81 MG TAB ONE (20:47)
[2025-06-16] MEDS ORDERED: Prochlorperazine 10 MG/2 ML VIAL ONE (20:47)
[2025-06-16 20:54] LABS: Lipase 27.0 U/L (8-78)
[2025-06-16 20:55] LABS: CRP, High Sensitivity at Bryan 0.28 mg/dL (< or = 0.5)
== END 2025-06-16 23:35 | disposition home or self-care (01) ==
LOC: ERS 19:12
DX: R07.9 Chest pain, unspecified (principal); M17.12 Unilateral primary osteoarthritis, left knee; R74.01 Elevation of levels of liver transaminase levels; I10 Essential (primary) hypertension; I25.10 Atherosclerotic heart disease of native coronary artery without angina pectoris; E11.9 Type 2 diabetes mellitus without complications; E78.5 Hyperlipidemia, unspecified; J45.909 Unspecified asthma, uncomplicated; Z87.891 Personal history of nicotine dependence
CPT/HCPCS: 36415; 71045; 80053; 83690; 84484; 85025; 85379; 86141; 93005; 96374; 96375; J0780

== ENCOUNTER 2025-07-21 13:00 | Inpatient (IN) | payer OTHER ==
[2025-07-21] MEDS ORDERED: Iopamidol-370 76% 500 ML MDV (1 ML CHARGE) ONE (13:14)
[2025-07-21 13:28] LABS: #Basophils 0.07 10x3/uL (0.0-0.2); #Eosinophils 0.25 10x3/uL (0.0-0.7); #Monocytes 0.62 10x3/uL (0.11-0.59); #Neutrophils 5.21 10x3/uL (1.40-6.50); %Basophils 0.8 % (0.0-1.0); %Eosinophils 2.9 % (0.0-10.0); %Lymphocytes 27.6 % (21.0-51.0); %Monocytes 7.3 % (0.0-10.0); %Neutrophils 61.0 % (42.0-75.0); Hematocrit 40.6 % (36.0-47.0); Hemoglobin 12.9 g/dL (12.0-16.0); Mean Corpuscular Hemoglobin 27.9 pg (27.0-31.0); Mean Corpuscular Volume 87.7 fL (78.0-98.0); Platelet Count 267 10x3/uL (130-400); Red Blood Cell (RBC) Count 4.63 mill/uL (4.20-5.40); White Blood Cell (WBC) Count 8.54 10x3/uL (4.8-10.8)
[2025-07-21 13:50] LABS: ALT (SGPT) 44 U/L (Less than 34); AST (SGOT) 46 U/L (11-34); Albumin 3.8 g/dL (3.1-4.5); Alkaline Phosphatase 114 U/L (40-110); Anion Gap 13 mmol/L (10-20); BUN (Urea Nitrogen) 11 mg/dL (9.8-20.1); Bilirubin, Total 0.4 mg/dL (0.3-1.2); Calc. Creatinine Clearance 0 mL/min (70-130); Calcium 9.6 mg/dL (7.8-10.44); Carbon Dioxide 25 mmol/L (23-31); Chloride 106 mmol/L (98-107); Globulin 3.4 g/dL (2.4-3.5); Glucose 136 mg/dL (80-115); Potassium 3.8 mmol/L (3.5-5.1); Sodium 140 mmol/L (136-145)
[2025-07-21] MEDS ORDERED: Aspirin Chewable 81 MG TAB ONE (16:03)
[2025-07-21] MEDS ORDERED: Nitroglycerin 0.4 MG TAB 1 EACH ONE (16:06)
[2025-07-21] MEDS ORDERED: Guaifenesin DM 100-10/5 ML UDCUP PO PRN (16:12)
[2025-07-21] MEDS ORDERED: Ondansetron PF 4 MG/2 ML Vial IVP PRN (16:12)
[2025-07-21] MEDS ORDERED: Electrolyte Replacement Protocol 1 EACH FS SCH (16:15)
[2025-07-21] MEDS ORDERED: hydrALAZINE 20 MG/ML VIAL SLOW IVP PRN (16:18)
[2025-07-21] MEDS ORDERED: Magnesium 2 GM/50 ML(in water) 2 GM in Premix 1 BAG IVPB PRN (16:30)
[2025-07-21] MEDS ORDERED: Potassium Chloride 20 MEQ in Premix 1 BAG IVPB PRN (16:30)
[2025-07-21] MEDS ORDERED: PHOS-NAK 1 PKT PACK PO PRN (16:30)
[2025-07-21] MEDS ORDERED: Dextrose 50% Abboject 50 ML SYRINGE SLOW IVP PRN (16:46)
[2025-07-21] MEDS ORDERED: Glucagon 1 MG/ML KIT IM PRN (16:46)
[2025-07-21] MEDS: hydrALAZINE 20 MG/ML VIAL SLOW IVP SCH (18:13)
[2025-07-21 18:33] VITALS: BMI 43.0
[2025-07-21] MEDS: Rosuvastatin 20 MG TAB PO SCH (20:28)
[2025-07-21] MEDS: Acetaminophen 325 MG TAB PO PRN (20:28)
[2025-07-21] MEDS: Enoxaparin 40 MG (0.4 mL) SYRINGE SC SCH (20:28)
[2025-07-21] MEDS: Famotidine/PF 20 mg/2ml Vial SLOW IVP SCH (20:28)
[2025-07-21] MEDS: Melatonin 3 MG TAB PO PRN (23:56)
[2025-07-22] MEDS: Lisinopril 10 MG TAB PO SCH (12:44)
[2025-07-22] MEDS: NIFEdipine XL 60 MG ER.TAB PO SCH (12:45)
[2025-07-22] MEDS: Enoxaparin 40 MG (0.4 mL) SYRINGE SC SCH (13:46)
[2025-07-22] MEDS: Gabapentin 300 MG CAP PO SCH (14:05)
[2025-07-22] MEDS: cloNIDine 0.1 MG TAB PO SCH (14:06)
[2025-07-22] MEDS: Pantoprazole 40 MG DR.TAB PO SCH (16:15)
[2025-07-22] MEDS: Naproxen 500 MG TAB PO SCH (16:23)
[2025-07-23] MEDS: Magnesium Oxide 400 MG TAB PO SCH (08:45)
[2025-07-23] MEDS: Lisinopril 20 MG TAB PO SCH (08:45)
[2025-07-23] MEDS: Aspirin 81 mg Enteric Coated Tablet PO SCH (08:46)
[2025-07-23] MEDS: Pantoprazole 40 MG DR.TAB PO SCH (08:46)
[2025-07-23] MEDS: NIFEdipine XL 60 MG ER.TAB PO SCH (08:47)
[2025-07-23] MEDS: Calcium Carbonate 500 MG ChewTAB PO PRN (10:33)
[2025-07-23] MEDS: Acetaminophen/Codeine 30-300mg Tablet PO PRN (19:33)
[2025-07-23 21:55] LABS: #Basophils 0.07 10x3/uL (0.0-0.2); #Eosinophils 0.35 10x3/uL (0.0-0.7); #Monocytes 0.66 10x3/uL (0.11-0.59); #Neutrophils 4.75 10x3/uL (1.40-6.50); %Basophils 0.9 % (0.0-1.0); %Eosinophils 4.4 % (0.0-10.0); %Lymphocytes 26.7 % (21.0-51.0); %Monocytes 8.2 % (0.0-10.0); %Neutrophils 59.1 % (42.0-75.0); Hematocrit 36.6 % (36.0-47.0); Hemoglobin 11.6 g/dL (12.0-16.0); Mean Corpuscular Hemoglobin 27.8 pg (27.0-31.0); Mean Corpuscular Volume 87.6 fL (78.0-98.0); Platelet Count 234 10x3/uL (130-400); Red Blood Cell (RBC) Count 4.18 mill/uL (4.20-5.40); White Blood Cell (WBC) Count 8.04 10x3/uL (4.8-10.8)
[2025-07-23 22:11] LABS: ALT (SGPT) 34 U/L (Less than 34); AST (SGOT) 30 U/L (11-34); Albumin 3.1 g/dL (3.1-4.5); Alkaline Phosphatase 105 U/L (40-110); Anion Gap 11 mmol/L (10-20); BUN (Urea Nitrogen) 17 mg/dL (9.8-20.1); Bilirubin, Total 0.4 mg/dL (0.3-1.2); Calc. Creatinine Clearance 77 mL/min (70-130); Calcium 8.6 mg/dL (7.8-10.44); Carbon Dioxide 24 mmol/L (23-31); Chloride 106 mmol/L (98-107); Globulin 2.8 g/dL (2.4-3.5); Glucose 111 mg/dL (80-115); Potassium 3.4 mmol/L (3.5-5.1); Sodium 138 mmol/L (136-145)
[2025-07-24 01:21] LABS: Magnesium 2.1 mg/dL (1.6-2.6)
[2025-07-24] MEDS: Ketorolac Tromethamine 30 MG (1 mL) VIAL IVP SCH (08:00)
[2025-07-24] MEDS ORDERED: NIFEdipine XL 30 MG ER.TAB PO SCH (09:00)
[2025-07-24 09:12] LABS: #Basophils 0.08 10x3/uL (0.0-0.2); #Eosinophils 0.40 10x3/uL (0.0-0.7); #Monocytes 0.60 10x3/uL (0.11-0.59); #Neutrophils 4.89 10x3/uL (1.40-6.50); %Basophils 1.0 % (0.0-1.0); %Eosinophils 5.0 % (0.0-10.0); %Lymphocytes 25.2 % (21.0-51.0); %Monocytes 7.5 % (0.0-10.0); %Neutrophils 60.8 % (42.0-75.0); Hematocrit 39.4 % (36.0-47.0); Hemoglobin 12.3 g/dL (12.0-16.0); Mean Corpuscular Hemoglobin 27.9 pg (27.0-31.0); Mean Corpuscular Volume 89.3 fL (78.0-98.0); Platelet Count 259 10x3/uL (130-400); Red Blood Cell (RBC) Count 4.41 mill/uL (4.20-5.40); White Blood Cell (WBC) Count 8.03 10x3/uL (4.8-10.8)
[2025-07-24 09:32] LABS: Anion Gap 10 mmol/L (10-20); BUN (Urea Nitrogen) 18 mg/dL (9.8-20.1); Calc. Creatinine Clearance 82 mL/min (70-130); Calcium 8.5 mg/dL (7.8-10.44); Carbon Dioxide 24 mmol/L (23-31); Chloride 108 mmol/L (98-107); Glucose 105 mg/dL (80-115); Potassium 4.3 mmol/L (3.5-5.1); Sodium 138 mmol/L (136-145)
[2025-07-24] MEDS: FLU (Fluarix Triv) 25-26 (6MOS UP)/PF 45 MCG/0.5 ML Syringe IM ONE (10:07)
[2025-07-24] MEDS: PNEUMOC 20-VAL CONJ-DIP CRM/PF 0.5 ML SYRINGE IM ONE (10:08)
[2025-07-24] MEDS: Naproxen 500 MG TAB PO SCH (15:41)
[2025-07-25 04:49] LABS: #Basophils 0.05 10x3/uL (0.0-0.2); #Eosinophils 0.30 10x3/uL (0.0-0.7); #Monocytes 0.57 10x3/uL (0.11-0.59); #Neutrophils 4.65 10x3/uL (1.40-6.50); %Basophils 0.7 % (0.0-1.0); %Eosinophils 4.1 % (0.0-10.0); %Lymphocytes 22.5 % (21.0-51.0); %Monocytes 7.9 % (0.0-10.0); %Neutrophils 64.4 % (42.0-75.0); Hematocrit 38.6 % (36.0-47.0); Hemoglobin 11.8 g/dL (12.0-16.0); Mean Corpuscular Hemoglobin 27.6 pg (27.0-31.0); Mean Corpuscular Volume 90.4 fL (78.0-98.0); Platelet Count 248 10x3/uL (130-400); Red Blood Cell (RBC) Count 4.27 mill/uL (4.20-5.40); White Blood Cell (WBC) Count 7.23 10x3/uL (4.8-10.8)
[2025-07-25 05:05] LABS: Anion Gap 11 mmol/L (10-20); BUN (Urea Nitrogen) 16 mg/dL (9.8-20.1); Calc. Creatinine Clearance 124 mL/min (70-130); Calcium 8.7 mg/dL (7.8-10.44); Carbon Dioxide 24 mmol/L (23-31); Chloride 109 mmol/L (98-107); Glucose 102 mg/dL (80-115); Potassium 4.3 mmol/L (3.5-5.1); Sodium 140 mmol/L (136-145)
[2025-07-25 07:39] VITALS: BP 136/65
[2025-07-25] MEDS: Ketorolac Tromethamine 30 MG (1 mL) VIAL IVP SCH (09:38)
[2025-07-25 11:19] VITALS: TEMP 98.2
== END 2025-07-25 13:29 | disposition home or self-care (01) | DRG 206 ==
LOC: ERS 13:00 → OBS 16:12 → ERS 17:31 → OBSVTOIN 07-22 15:24
PROVIDERS: ADMIT Internal Medicine; ATTEND Hospitalist
DX: M94.0 Chondrocostal junction syndrome [Tietze] (principal); I16.1 Hypertensive emergency; I25.10 Atherosclerotic heart disease of native coronary artery without angina pectoris; I10 Essential (primary) hypertension; I48.0 Paroxysmal atrial fibrillation; E66.9 Obesity, unspecified; F41.9 Anxiety disorder, unspecified; R73.03 Prediabetes; E78.5 Hyperlipidemia, unspecified; Z86.73 Personal history of transient ischemic attack (TIA), and cerebral infarction without residual deficits; Z79.82 Long term (current) use of aspirin; Z88.2 Allergy status to sulfonamides; Z88.0 Allergy status to penicillin; Z79.899 Other long term (current) drug therapy
CPT/HCPCS: 36415; 36416; 70450; 71045; 71275; 80048; 80053; 82533; 83036; 83605; 83735; 84484; 85025; 85379; 93005; 93010; 93306; 96372; 96374; 96375; 96376; G0378; J0360; J1308; J1650; J1885; J7030; J7120; Q9967